=== PATIENT | female | born 1995 | race African-American/Black ===

== ENCOUNTER 2022-06-23 07:53 | Emergency (ER) | payer OTHER, SELFPAY ==
[2022-06-23 07:54] VITALS: BP 121/108; PULSE 74; RESP 14; TEMP 36.8; O2SAT 97
--- NOTE | 2022-06-23 08:10 | ED.EAR ---
HPI - Ear Problem General Chief complaint: Ear Stated complaint: EARACHE Source: RN notes reviewed History of Present Illness HPI Narrative: Patient presents emergency department from home via EMS right ear pain. Patient states symptoms began 2 days ago. The pain is located in the right ear and is described as aching in nature states that she has taken Tylenol for the pain last night but no medication today. States she went to the emergency department 2 days ago and was prescribed a medication for the ER but does not know what it is she states is a white pill that she takes twice a day which she has taken 2 doses of she denies any fevers or chills rhinorrhea sore throat cough or any other symptoms Related Data Allergies Allergy/AdvReac Type Severity Reaction Status Date / Time No Known Allergies Allergy Verified 06/23/22 07:56 Review of Systems Review of Systems: Gen.: Denies fevers or chills Eyes: Denies eye pain or visual change ENT: See HPI Respiratory: Denies shortness of breath or cough CV: Denies chest pain GI: Denies abdominal pain nausea, emesis denies chance of Musculoskeletal: Denies back pain or muscle pain Neuro: Denies headache Skin: Denies rash Except as documented, all other systems reviewed and negative FOR[facility], [facility] Past Medical History Medical History (Updated 06/23/22 @ 08:14 by Lake Neal DO) Patient denies significant medical history Social History Social History (Updated 06/23/22 @ 08:12 by Lake Neal DO) Smoking status: Never smoker Exam Narrative: APPEARANCE: No acute distress, nontoxic, resting in bed EYES: EOMI HEENT: Normocephalic, atraumatic, left TM is normal in appearance, the right external ear canal is swollen and tender to palpation with speculum as well as pulling on the ear, able to visualize approximately a fourth of the TM which is normal in appearance nares patent or mucosa moist no erythema or exudate posterior RESPIRATORY: No respiratory distress MUSCULOSKELETAl: Moves all extremities. No clubbing, cyanosis or edema. NEURO: Awake and alert. Following commands, speech normal, no focal deficits SKIN:: Warm, dry. No rashes lesions or abrasions PSYCHIATRIC: Normal affect/mood, Course Course Emergency Course: Reviewed old records patient was placed on Augmentin which she will continue to take Discussed with patient results of workup and diagnosis. Discussed need for follow-up with primary care, proper use of medication, and reasons to return to the emergency department. Patient understands and agrees to current treatment plan Vital Signs Vital signs: Vital Signs Temperature 98.2 F 06/23/22 07:54 Pulse Rate 74 06/23/22 07:54 Respiratory Rate 14 06/23/22 07:54 Blood Pressure 121/108 H 06/23/22 07:54 Pulse Oximetry 97 06/23/22 07:54 Oxygen Delivery Room Air 06/23/22 07:54 Temperature 98.2 F 06/23/22 07:54 Pulse Rate 74 06/23/22 07:54 Respiratory Rate 14 06/23/22 07:54 Blood Pressure 121/108 H 06/23/22 07:54 Pulse Oximetry 97 06/23/22 07:54 Oxygen Delivery Room Air 06/23/22 07:54 Medical Decision Making Vital Signs Vital Signs: Vital Signs Temperature 98.2 F 06/23/22 07:54 Pulse Rate 74 06/23/22 07:54 Respiratory Rate 14 06/23/22 07:54 Blood Pressure 121/108 H 06/23/22 07:54 Pulse Oximetry 97 06/23/22 07:54 Oxygen Delivery Room Air 06/23/22 07:54 Temperature 98.2 F 06/23/22 07:54 Pulse Rate 74 06/23/22 07:54 Respiratory Rate 14 06/23/22 07:54 Blood Pressure 121/108 H 06/23/22 07:54 Pulse Oximetry 97 06/23/22 07:54 Oxygen Delivery Room Air 06/23/22 07:54 Discharge Plan Discharge Clinical Impression: Otitis externa Qualifiers: Chronicity: acute Laterality: right Patient Disposition: Home, Self-Care Condition: Stable Instructions: Antibiotic Form, Swimmer's [facility] (ED) Additional Instructions: Return for increasing pain fever or any
[2022-06-23] MEDS: CIPROFLOXACIN HCL 0.3% OP SOLN 2.5 ML BTL 4 DROP EACH EAR (08:50)
[2022-06-23] MEDS: IBUPROFEN 600 MG TABLET PO (08:51)
== END 2022-06-23 08:48 | disposition home or self-care (01) ==
PROVIDERS: Emergency Provider Emergency Medicine
DX: H60.91 Unspecified otitis externa, right ear (principal)
CPT/HCPCS: 99283; A9270

== ENCOUNTER 2022-06-24 15:22 | Emergency (ER) | payer MEDICAID, SELFPAY ==
[2022-06-24 16:43] VITALS: BP 129/77; PULSE 65; RESP 12; TEMP 36.4; O2SAT 100
--- NOTE | 2022-06-24 17:49 | ED.EAR ---
HPI - Ear Problem General Chief complaint: Ear Stated complaint: R ear pain x 7 days - seen in ED 06/23 Time Seen by Provider: 06/24/22 17:13 History of Present Illness HPI Narrative: 27-year-old female presents the emergency room for reevaluation of right ear pain. Patient states she was seen here yesterday diagnosed with otitis externa given eardrops and 600 mg ibuprofen. Patient states that she has taken 8 tablets of the ibuprofen and her pain has not subsided. Notes that sharp stabbing pain that radiates behind her ear and down the jaw. Patient is afebrile Related Data Allergies Allergy/AdvReac Type Severity Reaction Status Date / Time No Known Allergies Allergy Verified 06/24/22 15:23 Review of Systems Review of Systems: CONSTITUTIONAL: Denies fever, chills, or sweats. EYES: Denies visual changes, redness, or discharge. ENT: Reports right ear pain CARDIOVASCULAR: Denies chest pain, palpitations, or edema. RESPIRATORY: Denies cough or dyspnea. GASTROINTESTINAL: Denies abdominal pain, nausea, vomiting, or diarrhea. GENITOURINARY: Denies dysuria or hematuria. SKIN: Denies rash or itching. MUSCULOSKELETAL: Denies back pain, joint pain, or myalgia. NEUROLOGIC: Denies headache, numbness, dizziness, or weakness. PSYCHIATRIC: Denies anxiety or depression. PMFSH Past Medical History Medical History Patient denies significant medical history Social History Social History Smoking status: Never smoker Exam Narrative: GENERAL: Well-appearing, well-nourished, no physical limitations, and in no acute distress. HEAD: Normocephalic, atraumatic. EYES: Conjunctivae normal, PERRLA and EOMI. ENT: Right ear: Tragal tenderness, external canal is erythematous with noted exudate. Unable to visualize the TM due to swelling and pain NECK: Supple. No adenopathy or masses. CHEST: Clear to auscultation. No respiratory distress. No wheezes rales or rhonchi. No tenderness. HEART: Regular rate and rhythm. No murmur heard. Normal peripheral pulses. EXTREMITIES: Normal range of motion. No edema. No clubbing or cyanosis SKIN: Warm, dry, no rash. No noted wounds NEURO: No focal deficits. Alert and oriented x3. MAEW. CN's II-XI intact bilaterally, normal gait PSYCH: Cooperative. Normal mood and affect. Course Vital Signs Vital signs: Vital Signs Temperature 36.4 C L 06/24/22 16:43 Pulse Rate 65 06/24/22 16:43 Respiratory Rate 12 06/24/22 16:43 Blood Pressure 129/77 06/24/22 16:43 Pulse Oximetry 100 06/24/22 16:43 Oxygen Delivery Room Air 06/24/22 16:43 Temperature 36.4 C L 06/24/22 16:43 Pulse Rate 65 06/24/22 16:43 Respiratory Rate 12 06/24/22 16:43 Blood Pressure 129/77 06/24/22 16:43 Pulse Oximetry 100 06/24/22 16:43 Oxygen Delivery Room Air 06/24/22 16:43 Medical Decision Making Vital Signs Vital Signs: Vital Signs Temperature 36.4 C L 06/24/22 16:43 Pulse Rate 65 06/24/22 16:43 Respiratory Rate 12 06/24/22 16:43 Blood Pressure 129/77 06/24/22 16:43 Pulse Oximetry 100 06/24/22 16:43 Oxygen Delivery Room Air 06/24/22 16:43 Temperature 36.4 C L 06/24/22 16:43 Pulse Rate 65 06/24/22 16:43 Respiratory Rate 12 06/24/22 16:43 Blood Pressure 129/77 06/24/22 16:43 Pulse Oximetry 100 06/24/22 16:43 Oxygen Delivery Room Air 06/24/22 16:43 Discharge Plan Discharge Clinical Impression: Otitis externa Patient Disposition: Home, Self-Care Condition: Stable Instructions: Antibiotic Form Additional Instructions: Continue taking the Ciprodex eardrops as previously prescribed. Recommend stop taking the ibuprofen and begin taking the meloxicam. Follow-up with Dr. Hirsch, your nose and throat physician, on Monday if you are still experiencing pain. Prescriptions: New meloxicam 15 mg tablet 15 mg PO DAILY Qty: 10 0RF
[2022-06-24] MEDS: KETOROLAC (*BKC) 60 MG/2 ML VIAL IM (18:10)
== END 2022-06-24 18:20 | disposition home or self-care (01) ==
LOC: ANHED 17:57
PROVIDERS: Emergency Provider Nurse Practitioner Family
DX: H60.91 Unspecified otitis externa, right ear (principal)
CPT/HCPCS: 96372; 99283; J1885

== ENCOUNTER 2023-10-16 01:37 | Emergency (ER) | payer MEDICAID, SELFPAY ==
[2023-10-16 01:45] VITALS: BP 116/64; PULSE 78; RESP 19; TEMP 36.2; O2SAT 100
--- NOTE | 2023-10-16 01:59 | ED.EYEPROB ---
HPI - Eye Problem General Chief complaint: Eye Problems Stated complaint: left eye redness, blurry visoin Time Seen by Provider: 10/16/23 01:50 Source: patient Mode of arrival: ambulatory Limitations: no limitations History of Present Illness HPI Narrative: This is a 28-year-old female who presents to the ED with chief complaint of 1 week of left eye irritation. Denies any injuries or trauma to the eye. Reports that the swelling and redness are intermittent in severity but worse today. Reports that she wakes up most mornings with eyes matted shut. States she has green mucousy discharge. Denies fevers, chills, ear pain, pruritus, nasal congestion or rhinorrhea. Denies any recent illness or sick contacts. Related Data Allergies Allergy/AdvReac Type Severity Reaction Status Date / Time No Known Allergies Allergy Verified 10/16/23 01:50 Review of Systems Review of Systems: All systems as dictated in [facility] Past Medical History Medical History Patient denies significant medical history Social History Social History Smoking status: Never smoker Exam Narrative: GENERAL: Well-appearing, well-nourished, and in no acute distress. HEAD: Normocephalic, atraumatic. EYES: PERRLA and EOMI. The left eye has conjunctival injection diffusely. No ciliary flush. Wood's lamp exam without corneal abrasion or foreign body. No corneal ulceration. No Leesa sign. Pressure 10 mmHg in the left eye and 20 mm Hg in the right eye. Immediate relief with tetracaine drops. ENT: Nares clear, no rhinorrhea or epistaxis. Mucous membranes moist. Oropharynx without tonsillar hypertrophy exudate or other lesions. NECK: Supple. No adenopathy or masses. CHEST: No respiratory distress. Clear to auscultation. No wheezes rales or rhonchi HEART: Regular rate and rhythm. No murmur heard. Normal peripheral pulses. ABDOMEN: Soft, nontender, nondistended, normal active bowel sounds. MSK: Normal range of motion. No edema. SKIN: Warm, dry, no rash. NEURO: Alert and oriented x3. No focal deficits. PSYCH: Normal mood and affect. Course Vital Signs Vital signs: Vital Signs Temperature 97.2 F L 10/16/23 01:45 Pulse Rate 78 10/16/23 01:45 Respiratory Rate 19 10/16/23 01:45 Blood Pressure 116/64 10/16/23 01:45 Pulse Oximetry 100 10/16/23 01:45 Oxygen Delivery Room Air 10/16/23 01:45 Temperature 97.2 F L 10/16/23 01:45 Pulse Rate 78 10/16/23 01:45 Respiratory Rate 19 10/16/23 01:45 Blood Pressure 116/64 10/16/23 01:45 Pulse Oximetry 100 10/16/23 01:45 Oxygen Delivery Room Air 10/16/23 01:45 MDM - Eye Problem MDM Narrative Medical decision making narrative: This is a 28-year-old female who presents to the ED with chief complaint of left eye irritation for the last week. Vitals are normal. Exam shows conjunctival injection. No corneal abrasion or foreign body. Pressure is normal. Tetracaine provided immediate relief of her pain. It is unilateral and she is scratching mucopurulent crusted discharge in the mornings. Symptoms most consistent with bacterial conjunctivitis. Prescription for ofloxacin drops given. Pt will be discharged in stable condition. Return precautions given and supportive measures discussed. Pt is understanding and agreeable with plan for discharge and follow-up with PCP. Discharge Plan Discharge Clinical Impression: Bacterial conjunctivitis Patient Disposition: Home, Self-Care Condition: Stable Instructions: Antibiotic Form Additional Instructions: Your exam shows evidence of conjunctivitis. Please take ofloxacin eyedrops as directed for the next week. Artificial tears are prescribed to help with topical relief. Follow-up with regular doctor. If you have any new or worsening symptoms please return to the ER for further evaluation Prescr
== END 2023-10-16 02:17 | disposition home or self-care (01) ==
PROVIDERS: Emergency Provider Physician Assistant
DX: H10.9 Unspecified conjunctivitis (principal); B96.89 Other specified bacterial agents as the cause of diseases classified elsewhere
CPT/HCPCS: 99283